=== PATIENT | male | born 1950 | race American Indian/Alaskan Native ===

== ENCOUNTER 2019-02-02 06:37 | Day surgery (SDC) | payer OTHER ==
[~2019-02-02] VITALS: Ht 170.2 cm; Wt 99.0 kg
[2019-02-02 06:56] VITALS: BP 155/90
[2019-02-02] MEDS ORDERED: normal saline 1000ml 1,000 ML IV PRN (07:05)
[2019-02-02] MEDS ORDERED: METO100T7 PO (07:08)
[2019-02-02] MEDS ORDERED: GABA-532 PO (07:08)
[2019-02-02] MEDS ORDERED: HYDR-4353 PO (07:08)
[2019-02-02] MEDS ORDERED: VALS40TA2 PO (07:08)
[2019-02-02 07:51] LABS: ALBUMIN 2.9 G/DL (3.4-5.0); ANION GAP 8 (8-16); BLOOD UREA NITROGEN 19 MG/DL (7-18); CALCIUM 8.2 MG/DL (8.5-10.1); CHLORIDE 107 MMOL/L (99-107); CREATININE 1.46 MG/DL (0.60-1.10); GLUCOSE 178 MG/DL (70-104); POTASSIUM 4.1 MMOL/L (3.5-5.1); SODIUM 141 MMOL/L (135-145); TOTAL CARBON DIOXIDE 26.2 MMOL/L (24-32); eGFR 48 ML/MIN
[2019-02-02 07:59] LABS: BASOPHILS # (AUTO) 0.1 X10'3 (0-0.2); EOSINOPHILS # (AUTO) 0.1 X10'3 (0-0.9); HEMOGLOBIN 9.8 g/dl (14.0-17.9); LYMPHOCYTES # (AUTO) 2.3 X10'3 (1.1-4.8); LYMPHOCYTES % (AUTO) 19.5 % (21-51); MEAN CORPUSCULAR HEMOGLOBIN 21.6 PG (27.0-31.0); MEAN CORPUSCULAR HGB CONC 31.5 g/dL (33.0-36.5); MEAN CORPUSCULAR VOLUME 68.6 FL (78-98); MEAN PLATELET VOLUME 8.9 FL (7.4-10.4); MONOCYTES # (AUTO) 0.8 X10'3 (0-0.9); MONOCYTES % (AUTO) 7.4 % (2-12); NEUTROPHILS # (AUTO) 8.2 X10'3 (1.8-7.7); NEUTROPHILS % (AUTO) 71.1 % (42-75); PLATELET COUNT 255 X10'3 (140-440); RED BLOOD COUNT 4.52 X10'6 (4.70-6.10); RED CELL DISTRIBUTION WIDTH 18.3 % (11.5-14.5); WHITE BLOOD COUNT 11.5 X10'3 (4.5-11.0)
[2019-02-02] MEDS ORDERED: fentaNYL/PF 50MCG/1 ML 2ML syringe IV PRN (08:25)
[2019-02-02] MEDS ORDERED: midazolam 2 mg/2 ml injection IV PRN (08:25)
[2019-02-02] MEDS ORDERED: heparin sodium, porcine/PF 100unit/ml 5ML syringe ICATH ONE (08:25)
[2019-02-02] MEDS ORDERED: heparin sodium, porcine/PF 100unit/ml 5ML syringe ONE (08:32)
[2019-02-02] MEDS ORDERED: LIDOcaine 1%/PF 5ML 10 MG/ML VIAL ONE (08:32)
[2019-02-02] MEDS ORDERED: midazolam 2 mg/2 ml injection ONE (08:33)
[2019-02-02] MEDS ORDERED: fentaNYL/PF 50MCG/1 ML 2ML syringe ONE (08:33)
[2019-02-02] MEDS ORDERED: normal saline 1000ml 1,000 ML IV SCH (08:38)
[2019-02-02 09:25] VITALS: BP 149/81
[2019-02-02 09:30] VITALS: BP 133/71
[2019-02-02 09:45] VITALS: BP 133/71
[2019-02-02 10:00] VITALS: BP 138/86
[2019-02-02 10:15] VITALS: BP 158/79
== END 2019-02-02 10:20 | disposition home or self-care (01) ==
LOC: SSTAY O 06:37
PROVIDERS: ATTEND Radiology Diagnostic Radiology
DX: C18.2 Malignant neoplasm of ascending colon (principal); I10 Essential (primary) hypertension; G89.29 Other chronic pain; E11.40 Type 2 diabetes mellitus with diabetic neuropathy, unspecified; K21.9 Gastro-esophageal reflux disease without esophagitis; F32.9 Major depressive disorder, single episode, unspecified; F17.290 Nicotine dependence, other tobacco product, uncomplicated; Z90.49 Acquired absence of other specified parts of digestive tract; Z98.890 Other specified postprocedural states; Z79.899 Other long term (current) drug therapy; Z79.4 Long term (current) use of insulin
CPT/HCPCS: 36415; 36561; 76937; 77001; 80048; 82948; 85025; 85610; 99152; 99153; C1788; C1894; J1642; J2250; J3010; J7030; A6213